=== PATIENT | male | born 1990 | race Caucasian/White ===

== ENCOUNTER 2019-03-15 09:38 | Emergency (ER) | payer SELFPAY ==
[~2019-03-15] VITALS: Ht 177.8 cm; Wt 79.4 kg
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
--- NOTE | 2019-03-15 09:42 | NUR ---
ERMD at bedside for MSE
--- NOTE | 2019-03-15 09:54 | NUR ---
Patient discharged to home in stable conditon. Written and verbal after care instructions given. Patient verbalizes understanding of instructions. pt ambulated with steady gait
[2019-03-15 09:58] VITALS: BP 138/91
== END 2019-03-15 09:54 | disposition home or self-care (01) ==
LOC: ER 09:38
DX: S51.811D Laceration without foreign body of right forearm, subsequent encounter (principal); F17.210 Nicotine dependence, cigarettes, uncomplicated; X58.XXXD Exposure to other specified factors, subsequent encounter
CPT/HCPCS: A4217; A4663

== ENCOUNTER 2020-05-13 09:18 | Emergency (ER) | payer SELFPAY ==
[~2020-05-13] VITALS: Ht 177.8 cm; Wt 79.4 kg
[2020-05-13] MEDS ORDERED: LIDOCAINE HCL 1% 20 ML VIAL ONE (09:43)
--- NOTE | 2020-05-13 09:43 | NUR ---
Dr Cm at the [facility].
[2020-05-13] MEDS ORDERED: LIDOCAINE HCL 1% 20 ML VIAL TP ONE (09:45)
[2020-05-13] MEDS ORDERED: LIDOCAINE HCL 1% 20 ML VIAL IJ ONE (10:00)
[2020-05-13 10:03] VITALS: BP 138/78
== END 2020-05-13 10:03 | disposition home or self-care (01) ==
LOC: ER 09:18
DX: S61.210A Laceration without foreign body of right index finger without damage to nail, initial encounter (principal); W26.0XXA Contact with knife, initial encounter; Y93.G9 Activity, other involving cooking and grilling; Y92.89 Other specified places as the place of occurrence of the external cause
CPT/HCPCS: 12001; 99282; J3490; A4663